=== PATIENT | female | born 1960 | race Caucasian/White ===

== ENCOUNTER → 2018-03-01 | Outpatient (CLI) | payer OTHER | END | disposition home or self-care (01) | LOC: OIH 13:15 | PROVIDERS: ATTEND Internal Medicine Cardiovascular Disease | DX: Z13.6 Encounter for screening for cardiovascular disorders (principal) | CPT/HCPCS: 75571 ==

== ENCOUNTER → 2020-09-12 | Outpatient (CLI) | payer OTHER | END | disposition home or self-care (01) | LOC: SHCH 11:29 | PROVIDERS: ATTEND Internal Medicine Cardiovascular Disease | DX: R06.00 Dyspnea, unspecified (principal) | CPT/HCPCS: 93306; 93356 ==

== ENCOUNTER → 2021-02-16 | Outpatient (CLI) | payer OTHER | END | disposition home or self-care (01) | LOC: RAH 12:51 | PROVIDERS: ATTEND Internal Medicine Cardiovascular Disease | DX: I26.99 Other pulmonary embolism without acute cor pulmonale (principal); I80.201 Phlebitis and thrombophlebitis of unspecified deep vessels of right lower extremity | CPT/HCPCS: 71045; 78582; 93970; A9540; A9558 ==

== ENCOUNTER 2021-02-22 10:30 | Emergency (ER) | payer OTHER ==
[~2021-02-22] VITALS: Ht 165.1 cm; Wt 65.8 kg
[2021-02-22 10:31] VITALS: BP 159/76
[2021-02-22 10:51] LABS: HEMATOCRIT 38.6 % (36-48); MEAN CORPUSCULAR HEMOGLOBIN 42.4 pg (27.0-33.0); MEAN CORPUSCULAR HGB CONC 35.5 g/dL (32.0-36.0); MEAN CORPUSCULAR VOLUME 119.5 fL (79-99); PLATELET COUNT (AUTO) 306 K/uL (130-400); RED BLOOD CELL COUNT(AUTO) 3.23 MIL/uL (4.00-5.50); RED CELL DISTRIBUTION WIDTH 15.6 % (11.0-15.5)
[2021-02-22 11:46] LABS: ALBUMIN 3.3 g/dL (3.5-5.0); BILIRUBIN,TOTAL 0.6 mg/dL (0.2-1.0); CREATININE 0.8 mg/dL (0.5-1.5); POTASSIUM 4.7 mmol/L (3.5-5.1); TOTAL PROTEIN, SERUM 6.8 g/dL (6.0-8.3)
[2021-02-22 11:47] LABS: APPEARANCE,URINE Clear (CLEAR); BILIRUBIN,URINE Negative (NEGATIVE); COLOR,URINE Yellow (YELLOW); GLUCOSE, URINE (UA) Negative (NEGATIVE); KETONES,URINE Negative (NEGATIVE); LEUKOCYTE ESTERASE ,URINE Negative (NEGATIVE); NITRATE,URINE Negative (NEGATIVE); OCCULT BLOOD,URINE Negative (NEGATIVE); PH,URINE 5.5 (5.0-8.0); PROTEIN,URINE Negative (NEGATIVE); UROBILINOGEN,URINE 0.2 mg/dL (0.2-1.0)
[2021-02-22 12:00] LABS: BACTERIA,URINE Rare /HPF (None Seen); RBC,URINE 0-1 /HPF (0-1); SQUAMOUS EPITHELIAL CELL,UR 0-2 /HPF (0-2); WBC,URINE None Seen /HPF (0-1)
== END 2021-02-22 12:33 | disposition home or self-care (01) ==
LOC: EDH 10:30
DX: S00.83XA Contusion of other part of head, initial encounter (principal); Z86.711 Personal history of pulmonary embolism; Z86.718 Personal history of other venous thrombosis and embolism; W01.0XXA Fall on same level from slipping, tripping and stumbling without subsequent striking against object, initial encounter; Y93.89 Activity, other specified; Y92.89 Other specified places as the place of occurrence of the external cause; Y99.8 Other external cause status
CPT/HCPCS: 36415; 70450; 74170; 80053; 81001; 85027; 99284; Q9967

== ENCOUNTER → 2021-02-22 | Outpatient (CLI) | payer OTHER ==
[~2021-02-22] MED LIST: IOHEXOL 350 MG/ML 100ML INFUS..BTL IV ONE
== END | disposition home or self-care (01) ==
LOC: RAH 08:39
PROVIDERS: ATTEND Internal Medicine Gastroenterology
DX: R16.0 Hepatomegaly, not elsewhere classified (principal); K76.0 Fatty (change of) liver, not elsewhere classified; J98.11 Atelectasis
CPT/HCPCS: 74170; Q9967

== ENCOUNTER 2021-09-20 16:51 | Emergency (ER) | payer OTHER ==
[~2021-09-20] VITALS: Ht 165.1 cm; Wt 65.8 kg
[2021-09-20 17:49] LABS: BASOPHILS % (AUTO) 0.7 % (0.0-5.0); EOSINOPHILS % (AUTO) 1.2 % (0.0-8.0); HEMATOCRIT 43.9 % (36-48); LYMPHOCYTES % (AUTO) 22.6 % (21.0-51.0); MEAN CORPUSCULAR HEMOGLOBIN 37.4 pg (27.0-33.0); MEAN CORPUSCULAR HGB CONC 34.2 g/dL (32.0-36.0); MEAN CORPUSCULAR VOLUME 109.5 fL (79-99); MONOCYTES % (AUTO) 9.8 % (3.0-13.0); NEUTROPHILS % (AUTO) 65.5 % (40.0-77.0); PLATELET COUNT (AUTO) 173 K/uL (130-400); RED BLOOD CELL COUNT(AUTO) 4.01 MIL/uL (4.00-5.50); WHITE BLOOD COUNT (AUTO) 8.5 K/uL (4.8-10.8)
[2021-09-20 17:52] LABS: APPEARANCE,URINE SL CLOUDY (CLEAR); BILIRUBIN,URINE SMALL (NEGATIVE); COLOR,URINE YELLOW (YELLOW); GLUCOSE, URINE (UA) NEGATIVE (NEGATIVE); KETONES,URINE 5 mg/dL (NEGATIVE); LEUKOCYTE ESTERASE ,URINE NEGATIVE (NEGATIVE); NITRATE,URINE NEGATIVE (NEGATIVE); OCCULT BLOOD,URINE NEGATIVE (NEGATIVE); PROTEIN,URINE NEGATIVE (NEGATIVE); UROBILINOGEN,URINE 0.2 mg/dL (0.2-1.0)
[2021-09-20 18:03] LABS: CARBON DIOXIDE 28 mmol/L (21-32); CHLORIDE 101 mmol/L (101-111); CREATININE 1.1 mg/dL (0.5-1.5); GLOMERULAR FILTR. RATE CALC 54 mL/min (>60); GLUCOSE,RANDOM 97 mg/dL (70-105); POTASSIUM 3.9 mmol/L (3.5-5.1); SODIUM SERUM 131 mmol/L (136-145); UREA NITROGEN, BLOOD 9 mg/dL (7-18)
[2021-09-20 18:08] LABS: BACTERIA,URINE Moderate /HPF (None Seen); MUCUS,URINE Few LPF (None Seen); SQUAMOUS EPITHELIAL CELL,UR Moderate /HPF (0-2); URIC ACID CRYSTALS,URINE Few /LPF (None Seen)
[2021-09-20 18:13] LABS: ALANINE AMINOTRANSFERASE 35 U/L (12-78); ASPARTATE AMINOTRANSFERASE 62 U/L (10-37); TOTAL PROTEIN, SERUM 6.5 g/dL (6.0-8.3)
[2021-09-20 18:16] LABS: B-TYPE NATRIURETIC PEPTIDE 85 pg/mL (0-100)
[2021-09-20 18:21] LABS: CRP QUANTITATIVE < 2.00 mg/L (0.00-9.0)
[2021-09-20] MEDS ORDERED: CEFTRIAXONE 1G VIAL IVP ONE (18:30)
[2021-09-20] MEDS ORDERED: CEPH500B PO (18:31)
[2021-09-20 19:20] VITALS: BP 134/76
== END 2021-09-20 19:24 | disposition home or self-care (01) ==
LOC: EDH 16:51
DX: N39.0 Urinary tract infection, site not specified (principal); R20.0 Anesthesia of skin; R20.2 Paresthesia of skin; R22.43 Localized swelling, mass and lump, lower limb, bilateral; Z20.822 Contact with and (suspected) exposure to COVID-19; Z86.718 Personal history of other venous thrombosis and embolism; Z90.49 Acquired absence of other specified parts of digestive tract
CPT/HCPCS: 36415; 71045; 80053; 81001; 83880; 84484; 85025; 86140; 87088; 87635; 93970; 96374; C9803; J0696

== ENCOUNTER → 2021-12-29 | Outpatient (CLI) | payer OTHER ==
[~2021-12-29] MED LIST changes: +CEPH500B PO; -IOHEXOL 350 MG/ML 100ML INFUS..BTL IV ONE
[2021-12-29 12:18] LABS: CREATININE 0.9 mg/dL (0.5-1.5)
== END | disposition home or self-care (01) ==
LOC: LAB 11:15
PROVIDERS: ATTEND Internal Medicine Gastroenterology
DX: R93.3 Abnormal findings on diagnostic imaging of other parts of digestive tract (principal)
CPT/HCPCS: 36415; 82565; 84520

== ENCOUNTER → 2022-01-31 | Outpatient (CLI) | payer OTHER ==
[~2022-01-31] MED LIST changes: +GADOTERATE MEGLUMINE 10 MMOL/20 ML VIAL IV ONE
== END | disposition home or self-care (01) ==
LOC: RAH 08:48
PROVIDERS: ATTEND Internal Medicine Gastroenterology
DX: R93.3 Abnormal findings on diagnostic imaging of other parts of digestive tract (principal)
CPT/HCPCS: 74183; A9575

== ENCOUNTER 2022-05-13 10:49 | Emergency (ER) | payer OTHER ==
[~2022-05-13] VITALS: Ht 165.1 cm; Wt 58.1 kg
[~2022-05-13 10:49] MED LIST changes: -GADOTERATE MEGLUMINE 10 MMOL/20 ML VIAL IV ONE
[2022-05-13] MEDS ORDERED: 0.9%NACL 1000ML 2,000 ML IV ONE (11:30)
[2022-05-13 11:47] LABS: BASOPHILS % (AUTO) 0.3 % (0.0-5.0); EOSINOPHILS % (AUTO) 3.1 % (0.0-8.0); HEMATOCRIT 36.6 % (36-48); LYMPHOCYTES % (AUTO) 18.6 % (21.0-51.0); MEAN CORPUSCULAR HEMOGLOBIN 36.3 pg (27.0-33.0); MEAN CORPUSCULAR HGB CONC 34.2 g/dL (32.0-36.0); MEAN CORPUSCULAR VOLUME 106.4 fL (79-99); MONOCYTES % (AUTO) 4.8 % (3.0-13.0); NEUTROPHILS % (AUTO) 72.6 % (40.0-77.0); PLATELET COUNT (AUTO) 68 K/uL (130-400); RED BLOOD CELL COUNT(AUTO) 3.44 MIL/uL (4.00-5.50); RED CELL DISTRIBUTION WIDTH 17.2 % (11.0-15.5); WHITE BLOOD COUNT (AUTO) 7.1 K/uL (4.8-10.8)
[2022-05-13 11:52] LABS: CREATININE 0.9 mg/dL (0.5-1.5); POTASSIUM 4.1 mmol/L (3.5-5.1)
[2022-05-13 12:02] LABS: TOTAL PROTEIN, SERUM 6.9 g/dL (6.0-8.3)
[2022-05-13 12:13] LABS: B-TYPE NATRIURETIC PEPTIDE 651 pg/mL (0-100)
[2022-05-13 12:39] LABS: APPEARANCE,URINE CLOUDY (CLEAR); BILIRUBIN,URINE NEGATIVE (NEGATIVE); COLOR,URINE ORANGE (YELLOW); GLUCOSE, URINE (UA) NEGATIVE (NEGATIVE); KETONES,URINE 5 mg/dL (NEGATIVE); LEUKOCYTE ESTERASE ,URINE 500 Leu/uL (NEGATIVE); NITRATE,URINE 2+ (NEGATIVE); PH,URINE 6.5 (5.0-8.0); PROTEIN,URINE 30 mg/dL (NEGATIVE); UROBILINOGEN,URINE 0.2 mg/dL (0.2-1.0)
[2022-05-13 12:52] LABS: BACTERIA,URINE MOD /HPF (None Seen); MUCUS,URINE MANY LPF (None Seen); SQUAMOUS EPITHELIAL CELL,UR MOD /HPF (0-2); WBC,URINE 26-50 /HPF (0-1)
[2022-05-13 13:09] LABS: PLATELET MORPHOLOGY COMMENT DECREASED
[2022-05-13] MEDS ORDERED: CEFU500T67 PO (13:24)
[2022-05-13] MEDS ORDERED: CEFTRIAXONE 1G VIAL IVP ONE (13:30)
[2022-05-13 14:05] VITALS: BP 124/66
== END 2022-05-13 14:16 | disposition home or self-care (01) ==
LOC: EDH 10:49
DX: N39.0 Urinary tract infection, site not specified (principal); G62.9 Polyneuropathy, unspecified; Z86.718 Personal history of other venous thrombosis and embolism; Z87.440 Personal history of urinary (tract) infections; Z90.49 Acquired absence of other specified parts of digestive tract; Z90.710 Acquired absence of both cervix and uterus; Z98.890 Other specified postprocedural states
CPT/HCPCS: 99285; 93970; 96374; 71045; 96361; 84443; 84484; 80053; 83880; 85025; 85378; 85651; 87077; 87088; 87186; 81001; 36415; 93005; J7030; J0696

== ENCOUNTER 2022-07-26 17:28 | Emergency (ER) | payer OTHER ==
[~2022-07-26] VITALS: Ht 165.1 cm; Wt 71.2 kg
[~2022-07-26 17:28] MED LIST changes: +CEFU500T67 PO; -CEPH500B PO
[2022-07-26 20:28] LABS: BASOPHILS % (AUTO) 0.9 % (0.0-5.0); EOSINOPHILS % (AUTO) 1.8 % (0.0-8.0); LYMPHOCYTES % (AUTO) 27.8 % (21.0-51.0); MEAN CORPUSCULAR HEMOGLOBIN 37.1 pg (27.0-33.0); MEAN CORPUSCULAR HGB CONC 33.9 g/dL (32.0-36.0); MEAN CORPUSCULAR VOLUME 109.4 fL (79-99); MONOCYTES % (AUTO) 12.6 % (3.0-13.0); NEUTROPHILS % (AUTO) 56.6 % (40.0-77.0); PLATELET COUNT (AUTO) 238 K/uL (130-400); RED BLOOD CELL COUNT(AUTO) 2.56 MIL/uL (4.00-5.50); RED CELL DISTRIBUTION WIDTH 13.3 % (11.0-15.5); WHITE BLOOD COUNT (AUTO) 8.7 K/uL (4.8-10.8)
[2022-07-26 20:42] LABS: ALBUMIN 2.4 g/dL (3.5-5.0); MAGNESIUM 2.1 mg/dL (1.80-2.40); TOTAL PROTEIN, SERUM 6.4 g/dL (6.0-8.3)
[2022-07-26 20:50] LABS: POTASSIUM 2.7 mmol/L (3.5-5.1)
[2022-07-26 21:00] LABS: B-TYPE NATRIURETIC PEPTIDE 289 pg/mL (0-100)
[2022-07-26] MEDS ORDERED: POTASSIUM BICARB/CIT AC 25 MEQ TABLET.EFF PO ONE ×2 (21:30→23:30)
[2022-07-26 21:40] LABS: PLATELET MORPHOLOGY ADEQUATE
[2022-07-26] MEDS ORDERED: FUROSEMIDE 40MG VIAL IV ONE (23:30)
[2022-07-26] MEDS ORDERED: IOHEXOL 350 MG/ML 100ML INFUS..BTL IV ONE (23:41)
[2022-07-27 01:05] LABS: APPEARANCE,URINE CLEAR (CLEAR); BILIRUBIN,URINE NEGATIVE (NEGATIVE); COLOR,URINE COLORLESS (YELLOW); GLUCOSE, URINE (UA) NEGATIVE (NEGATIVE); KETONES,URINE NEGATIVE (NEGATIVE); LEUKOCYTE ESTERASE ,URINE NEGATIVE Leu/uL (NEGATIVE); NITRATE,URINE NEGATIVE (NEGATIVE); OCCULT BLOOD,URINE NEGATIVE (NEGATIVE); PROTEIN,URINE NEGATIVE (NEGATIVE); UROBILINOGEN,URINE 0.2 mg/dL (0.2-1.0)
[2022-07-27] MEDS ORDERED: SPIR25TA6 PO (02:05)
[2022-07-27 02:11] VITALS: BP 106/58
== END 2022-07-27 02:13 | disposition home or self-care (01) ==
LOC: EDH 17:28
DX: E87.79 Other fluid overload (principal); E87.6 Hypokalemia; R60.0 Localized edema; Z90.49 Acquired absence of other specified parts of digestive tract; Z90.710 Acquired absence of both cervix and uterus; Z79.899 Other long term (current) drug therapy; Z86.711 Personal history of pulmonary embolism
CPT/HCPCS: 99285; 71270; 93970; 96374; 71045; 82550; 83735; 84484; 80053; 83880; 85025; 85378; 81003; 36415; 74177; 93005; J1940; Q9967

== ENCOUNTER → 2023-03-22 | Outpatient (CLI) | payer OTHER ==
[~2023-03-22] MED LIST changes: +SPIR25TA6 PO
== END | disposition home or self-care (01) ==
LOC: SHCH 09:37
PROVIDERS: ATTEND Internal Medicine Cardiovascular Disease
DX: I87.2 Venous insufficiency (chronic) (peripheral) (principal); I87.1 Compression of vein
CPT/HCPCS: 93970

== ENCOUNTER → 2023-05-02 | Outpatient (CLI) | payer OTHER ==
[2023-05-02 16:19] LABS: BASOPHILS # (AUTO) 0.12 K/uL (0.00-0.20); BASOPHILS % (AUTO) 1.2 % (0.0-5.0); EOSINOPHILS # (AUTO) 2.11 K/uL (0.00-0.70); EOSINOPHILS % (AUTO) 21.6 % (0.0-8.0); HEMATOCRIT 30.8 % (36-48); IMMATURE GRANULOCYTE ABSOLUTE 0.02 K/uL (0-1); LYMPHOCYTES # (AUTO) 2.3 K/uL (1.0-4.8); LYMPHOCYTES % (AUTO) 23.2 % (21.0-51.0); MEAN CORPUSCULAR HGB CONC 32.5 g/dL (32.0-36.0); MEAN CORPUSCULAR VOLUME 95.4 fL (79-99); MONOCYTES # (AUTO) 1.2 K/uL (0.1-1.0); MONOCYTES % (AUTO) 12.2 % (3.0-13.0); NEUTROPHILS # (AUTO) 4.1 K/uL (1.8-7.7); NEUTROPHILS % (AUTO) 41.6 % (40.0-77.0); PLATELET COUNT (AUTO) 87 K/uL (130-400); RED BLOOD CELL COUNT(AUTO) 3.23 MIL/uL (4.00-5.50); RED CELL DISTRIBUTION WIDTH 17.2 % (11.0-15.5); WHITE BLOOD COUNT (AUTO) 9.8 K/uL (4.8-10.8)
[2023-05-02 16:43] LABS: ALBUMIN 2.7 g/dL (3.5-5.0); BILIRUBIN,TOTAL 2.1 mg/dL (0.2-1.0); POTASSIUM 3.3 mmol/L (3.5-5.1); TOTAL PROTEIN, SERUM 5.5 g/dL (6.0-8.3)
== END | disposition home or self-care (01) ==
LOC: LAB 11:45
PROVIDERS: ATTEND Internal Medicine Cardiovascular Disease
DX: D64.9 Anemia, unspecified (principal)
CPT/HCPCS: 36415; 80053; 83880; 85025